=== PATIENT | female | born 1980 | race Caucasian/White ===

== ENCOUNTER 2017-08-16 09:39 | Emergency (ER) | payer MEDICAID ==
[~2017-08-16] VITALS: Ht 175.3 cm; Wt 126.0 kg
[~2017-08-16 09:39] MED LIST: None per pt.
[2017-08-16 09:42] VITALS: BP 106/66
[2017-08-16] MEDS ORDERED: METHOCARBAMOL 750 MG TABLET ONE (10:13)
[2017-08-16] MEDS ORDERED: KETOROLAC 30 MG/1 ML ONE (10:14)
[2017-08-16] MEDS ORDERED: METHOCARBAMOL 750 MG TABLET PO ONE (10:30)
[2017-08-16] MEDS ORDERED: KETOROLAC 30 MG/1 ML IM ONE (10:30)
== END 2017-08-16 11:46 | disposition home or self-care (01) ==
LOC: ED 11:40
DX: M54.5 Low back pain (principal); M41.9 Scoliosis, unspecified
CPT/HCPCS: 72110; 96372; 99284; J1885